=== PATIENT | male | born 1955 | race American Indian/Alaskan Native ===

== ENCOUNTER 2017-04-09 13:03 | Inpatient (IN) | payer MEDICARE, OTHER ==
[2017-04-09 13:52] LABS: Basophils % (Auto) 0.2 % (0.0-1.8); Eosinophils # (Auto) 0.4 K/mm3 (0.0-0.4); Eosinophils % (Auto) 3.9 % (0.0-4.3); Hematocrit 26.5 % (35.5-45.6); Hemoglobin 9.1 gm/dl (11.8-15.2); Lymphocytes # (Auto) 2.4 K/mm3 (1.2-5.4); Lymphocytes % (Auto) 26.1 % (13.4-35.0); Mean Corpuscular HGB Conc 34 % (32-34); Mean Corpuscular Hemoglobin 31 pg (28-32); Mean Corpuscular Volume 91 fl (84-94); Monocytes # (Auto) 0.7 K/mm3 (0.0-0.8); Monocytes % (Auto) 7.4 % (0.0-7.3); Platelet Count 169 K/mm3 (140-440); Red Blood Count 2.92 M/mm3 (3.65-5.03); Red Cell Distribution Width 13.1 % (13.2-15.2)
[2017-04-09 14:10] LABS: Alanine Aminotransferase 11 units/L (7-56); Albumin 3.3 g/dL (3.9-5); BUN/Creatinine Ratio 27; Blood Urea Nitrogen 16 mg/dL (9-20); Calcium 7.9 mg/dL (8.4-10.2); Hemolysis Index 5; Lipase 26 units/L (13-60)
[2017-04-09 14:13] LABS: INR 1.06 (0.87-1.13); Partial Thromboplastin Time 29.5 Sec. (24.2-36.6)
--- NOTE | 2017-04-09 14:24 | Emergency Department Report ---
ED GI Bleed HPI - General Chief complaint: GI Bleed Stated complaint: ANAL BLEED Time Seen by Provider: 04/09/17 14:06 Source: patient, family, EMS Mode of arrival: Stretcher Limitations: No Limitations - History of Present Illness Initial comments: Mr. Adhikari presents with 2 days of bloody stools, malaise and stomach upset. Has felt weak. No discrete pain. Hx of diverticular bleed 3 years ago. Required blood transfusion. Patient stated that he had both black and red blood seen in the toilet and on toilet paper. He did have brown stool. MD complaint: blood on toilet paper, blood streaked stool, gross hematochezia -: Gradual, days(s) (2) Severity scale (0 -10): 0 Quality: painless, other ("stomach rumbling, bubbling") Improves with: none Worsens with: none Context: history of GI bleed Associated Symptoms: denies: abdominal pain, nausea, vomiting, loss of appetite , easy bruising, shortness of breath - Related Data Home Medications Medication Instructions Recorded Confirmed Last Taken amLODIPine [Norvasc] 5 mg PO DAILY 11/20/14 04/09/17 04/08/17 Acetaminophen [Tylenol] 325 mg PO Q6HR PRN 02/07/15 04/09/17 04/08/17 Aspirin [Aspirin EC] 81 mg PO DAILY 04/09/17 04/09/17 04/08/17 AtorvaSTATin [Lipitor] 20 mg PO QHS 04/09/17 04/09/17 04/08/17 Quetiapine Fumarate [SEROquel] 50 mg PO QDAY 04/09/17 04/09/17 04/08/17 Sertraline [Zoloft] 50 mg PO QDAY 04/09/17 04/09/17 04/08/17 Allergies Allergy/AdvReac Type Severity Reaction Status Date / Time No Known Allergies Allergy Unverified 11/20/14 14:58 ED Review of Systems ROS: Stated complaint: ANAL BLEED Other details as noted in HPI Comment: All other systems reviewed and negative Constitutional: malaise, weakness Respiratory: denies: cough Cardiovascular: denies: chest pain ED Past Medical Hx - Past Medical History Hx Hypertension: Yes Hx Congestive Heart Failure: No Hx Diabetes: No Hx Liver Disease: (elevated LFT's) Hx Arthritis: No Hx Asthma: No Hx COPD: No Hx HIV: No Additional medical history: GIB - Social History Smoking Status: Current Some Day Smoker Substance Use Type: Alcohol - Medications Home Medications: Home Medications Medication Instructions Recorded Confirmed Last Taken Type amLODIPine [Norvasc] 5 mg PO DAILY 11/20/14 04/09/17 04/08/17 History Acetaminophen [Tylenol] 325 mg PO Q6HR PRN 02/07/15 04/09/17 04/08/17 History Aspirin [Aspirin EC] 81 mg PO DAILY 04/09/17 04/09/17 04/08/17 History AtorvaSTATin [Lipitor] 20 mg PO QHS 04/09/17 04/09/17 04/08/17 History Quetiapine Fumarate [SEROquel] 50 mg PO QDAY 04/09/17 04/09/17 04/08/17 History Sertraline [Zoloft] 50 mg PO QDAY 04/09/17 04/09/17 04/08/17 History ED Physical Exam - General Limitations: No Limitations General appearance: alert, in no apparent distress - Head Head exam: Present: atraumatic, normocephalic - Eye Eye exam: Present: normal appearance - ENT ENT exam: Present: mucous membranes moist - Neck Neck exam: Present: normal inspection - Respiratory Respiratory exam: Present: normal lung sounds bilaterally. Absent: respiratory distress, wheezes, rales, rhonchi - Cardiovascular Cardiovascular Exam: Present: regular rate, normal rhythm. Absent: systolic murmur, diastolic murmur, rubs, gallop - GI/Abdominal GI/Abdominal exam: Present: soft, normal bowel sounds. Absent: distended, tenderness, guarding, rebound, rigid - Rectal Rectal exam: Present: normal rectal tone, heme (+) stool, bloody stool (red thick blood, blood noted at rectum). Absent: hemorrhoids, mass - Extremities Exam Extremities exam: Present: normal inspection - Back Exam Back exam: Present: normal inspection - Neurological Exam Neurological exam: Present: alert, oriented X3 - Psychiatric Psychiatric exam: Present: normal affect, normal mood - Skin Skin exam: Present: warm, dry, intact, normal color. Absent: rash ED Course Vital Signs 04/09/17 04/09/17 13:25 13:28 Temperature 97.8 F Pulse Rate 91 H Respiratory 13 13 Rate Blood Pressure 103/79 [Left] O2 Sat by Pulse 98 98 Oximetry ED Medical Decision Making - Lab Data Result diagrams: 04/09/17 13:34 04/09/17 13:34 Laboratory Results - last 24 hr 04/09/17 04/09/17 04/09/17 13:34 13:34 13:34 WBC 9.2 RBC 2.92 L Hgb 9.1 L Hct 26.5 L MCV 91 MCH 31 MCHC 34 RDW 13.1 L Plt Count 169 Lymph % (Auto) 26.1 [place] % (Auto) 7.4 H Eos % (Auto) 3.9 Baso % (Auto) 0.2 Lymph # 2.4 Ware # 0.7 Eos # 0.4 Baso # 0.0 Seg Neutrophils % 62.4 Seg Neutrophils # 5.8 PT 14.4 INR 1.06 APTT 29.5 Sodium 140 Potassium 4.0 Chloride 105.7 Carbon Dioxide 24 Anion Gap 14 BUN 16 Creatinine 0.6 L Estimated GFR > 60 BUN/Creatinine Ratio 27 Glucose 119 H Calcium 7.9 L Total Bilirubin 0.50 AST 17 ALT 11 Alkaline Phosphatase 27 L Total Protein 5.3 L Albumin 3.3 L Albumin/Globulin Ratio 1.7 Lipase 26 Blood Type Antibody Screen 04/09/17 13:34 WBC RBC Hgb Hct MCV MCH MCHC RDW Plt Count Lymph % (Auto) [place] % (Auto) Eos % (Auto) Baso % (Auto) Lymph # Ware # Eos # Baso # Seg Neutrophils % Seg Neutrophils # PT INR APTT Sodium Potassium Chloride Carbon Dioxide Anion Gap BUN Creatinine Estimated GFR BUN/Creatinine Ratio Glucose Calcium Total Bilirubin AST ALT Alkaline Phosphatase Total Protein Albumin Albumin/Globulin Ratio Lipase Blood Type B NEGATIVE Antibody Screen Negative Vital Signs - 24 hr 04/09/17 04/09/17 13:25 13:28 Temperature 97.8 F Pulse Rate 91 H Respiratory 13 13 Rate Blood Pressure 103/79 [Left] O2 Sat by Pulse 98 98 Oximetry - Medical Decision Making 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 Patient had both lower and upper GI bleed due to diverticulosis bleed and peptic ulcer disease. He required 10 units of packed red blood cells. On today's current examination my clinical impression that he is experiencing lower GI bleed. Dr. Sharma hospitalist will admit. I have placed call with GI consult. Critical care attestation.: If time is entered above; I have spent that time in minutes in the direct care of this critically ill patient, excluding procedure time. ED Disposition Clinical Impression: Lower GI bleed Disposition: 09 OP ADMIT IP TO THIS HOSP Is pt being admited?: Yes Does the pt Need Aspirin: No Condition: Stable Forms: Accompanied Note Time of Disposition: 15:28
[2017-04-09] MEDS ORDERED: NACL 0.9% 1000 ML 1,000 ML IV ONE (15:33)
--- NOTE | 2017-04-09 16:15 | History and Physical Report ---
History of Present Illness Chief complaint: I got diverticulosis History of present illness: 61 YO Male with HTN, Nicotine Dependence, HLD, Diverticular Bleeding, Elevated LFT's presents to ED for evaluation. Pt states that he has experienced multiple episodes of blood in his stool over the past 2 days with worsening symptoms over the past day. Pt states that he felt dizzy upon standing, weak and unable to maintain his balance. Pt acknowledges decreased exercise tolerance. Pt presents to ED for evaluation. PT denies fever, chills, CP, Palpitations, NVD, Syncope, Vertigo, Trauma, productive cough, abdominal pain, or recent ill contacts. Pt seen and evaluated in ED and found to have symptomatic lower GI bleed. GI team consulted in ED. Pt admitted to medical floor. Past History Past Medical History: hypertension, other (Nicotine Dependence, GI Bleed,) Past Surgical History: Other (Colonoscopy) Social history: , lives with family, smoking. denies: alcohol abuse, prescription drug abuse Family history: hypertension Medications and Allergies Allergies Allergy/AdvReac Type Severity Reaction Status Date / Time No Known Allergies Allergy Unverified 11/20/14 14:58 Home Medications Medication Instructions Recorded Confirmed Last Taken Type amLODIPine [Norvasc] 5 mg PO DAILY 11/20/14 04/09/17 04/08/17 History Acetaminophen [Tylenol] 325 mg PO Q6HR PRN 02/07/15 04/09/17 04/08/17 History Aspirin [Aspirin EC] 81 mg PO DAILY 04/09/17 04/09/17 04/08/17 History AtorvaSTATin [Lipitor] 20 mg PO QHS 04/09/17 04/09/17 04/08/17 History Quetiapine Fumarate [SEROquel] 50 mg PO QDAY 04/09/17 04/09/17 04/08/17 History Sertraline [Zoloft] 50 mg PO QDAY 04/09/17 04/09/17 04/08/17 History Active Meds: Active Medications Sodium Chloride (Nacl 0.9% 1000 Ml) 1,000 mls @ 999 mls/hr IV BOLUS ONE Stop: 04/09/17 16:33 Last Admin: 04/09/17 15:43 Dose: 999 mls/hr Review of Systems Constitutional: weakness, no weight loss, no weight gain, no fever, no chills Ears, nose, mouth and throat: no ear pain, no ear discharge, no tinnitis, no decreased hearing, no nose pain, no nasal congestion Cardiovascular: no orthopnea, no palpitations, no rapid/irregular heart beat, no edema, no syncope Respiratory: no cough, no cough with sputum, no excessive sputum Gastrointestinal: melena, no nausea, no vomiting, no diarrhea, no constipation Genitourinary Male: no hematuria, no flank pain, no discharge, no urinary frequency, no urinary hesitancy Rectal: bleeding, no pain, no incontinence Musculoskeletal: no neck stiffness, no neck pain, no shooting arm pain, no arm numbness/tingling, no low back pain Integumentary: no rash, no pruritis, no redness Neurological: weakness, no head injury, no transient paralysis, no paralysis, no headaches, no migraines, no convulsions Psychiatric: no anxiety, no memory loss, no change in sleep habits, no sleep disturbances, no insomnia Endocrine: no cold intolerance, no heat intolerance, no polyphagia Hematologic/Lymphatic: no easy bruising, no easy bleeding, no lymphadenopathy, no lymphedema Allergic/Immunologic: no urticaria, no allergic rhinitis, no wheezing, no anaphylaxis Exam - Constitutional Vitals: Temp Pulse Resp BP Pulse Ox 97.8 F 91 H 13 103/79 98 04/09/17 13:25 04/09/17 13:25 04/09/17 13:28 04/09/17 13:25 04/09/17 13:28 General appearance: Present: mild distress - EENT Eyes: Present: PERRL ENT: hearing intact, clear oral mucosa - Neck Neck: Present: supple, normal ROM - Respiratory Respiratory effort: normal Respiratory: bilateral: CTA - Cardiovascular Rhythm: other (tachycardia) Heart Sounds: Present: S1 & S2. Absent: rub, click - Extremities Extremities: pulses symmetrical, No edema Peripheral Pulses: within normal limits - Abdominal General gastrointestinal: Present: soft, non-tender, non-distended, normal bowel sounds Male genitourinary: Present: normal - Integumentary Integumentary: Present: clear, warm, dry - Musculoskeletal Musculoskeletal: generalized weakness - Psychiatric Psychiatric: appropriate mood/affect, intact judgment & insight Results - Labs CBC & Chem 7: 04/09/17 13:34 04/09/17 13:34 Labs: Abnormal lab results 04/09/17 04/09/17 Range/Units 13:34 13:34 RBC 2.92 L (3.65-5.03) M/mm3 Hgb 9.1 L (11.8-15.2) gm/dl Hct 26.5 L (35.5-45.6) % RDW 13.1 L (13.2-15.2) % [place] % (Auto) 7.4 H (0.0-7.3) % Creatinine 0.6 L (0.8-1.5) mg/dL Glucose 119 H (75-100) mg/dL Calcium 7.9 L (8.4-10.2) mg/dL Alkaline Phosphatase 27 L (35-129) units/L Total Protein 5.3 L (6.3-8.2) g/dL Albumin 3.3 L (3.9-5) g/dL Assessment and Plan - Patient Problems (1) Lower GI bleed Current Visit: Yes Status: Acute Plan to address problem: GI consulted, IV ppi therapy, monitor hgb with serial cbc, Endoscopy as per GI, PRBC transfusion as clinically indicated. (2) HTN (hypertension), benign Current Visit: No Status: Acute Plan to address problem: monitor bp q shift, continue medical management, IV hydralazine prn (3) Tobacco abuse Current Visit: No Status: Acute Plan to address problem: Pt counseled, Pt refused to pick quit date (4) Obesity (BMI 30.0-34.9) Current Visit: Yes Status: Acute Plan to address problem: Pt counseled regarding balanced diet, and increased physical activity as discharge. (5) DVT prophylaxis Current Visit: No Status: Acute
[2017-04-09] MEDS ORDERED: TYLENOL PO PRN ×2 (16:17→16:21)
[2017-04-09] MEDS ORDERED: PROVENTIL IH PRN (16:17)
[2017-04-09] MEDS ORDERED: ZOFRAN IV PRN (16:17)
--- NOTE | 2017-04-09 16:50 | Gastroenterology Consultation ---
History of Present Illness - Reason for Consult Consult date: 04/09/17 LGI bleed Requesting physician: ROMEO JONES - History of Present Illness The patient is a 61 year old man now admitted for LGI bleeding. He reports passing BRBPR intermittently starting 2 days ago and felt it would stop on its' own. He has had a previous massive LGIB from diverticulosis about 3 years ago requiring about 17 units of PRBCs and contemplation of surgery at that time. A few benign polyps were also noted. The patient reports that EGD was unrevealing for bleeding sources at that time. He has had no abdominal pain, fever, chills or weight loss. The patient smokes a half pack of cigarettes, quit drinking 40 years ago. No use of NSAIDS or anticoagulants. PMH remarkable he reports for hypertension. Also taking seroquel. No FH of colon cancer. Past History Past Medical History: hypertension, other (Prior diverticular bleeding. On seroquel for possible mental health illness.) Past Surgical History: No surgical history Social history: no significant social history, smoking. denies: alcohol abuse Family history: no significant family history Medications and Allergies Allergies Allergy/AdvReac Type Severity Reaction Status Date / Time No Known Allergies Allergy Unverified 11/20/14 14:58 Home Medications Medication Instructions Recorded Confirmed Last Taken Type amLODIPine [Norvasc] 5 mg PO DAILY 11/20/14 04/09/17 04/08/17 History Acetaminophen [Tylenol] 325 mg PO Q6HR PRN 02/07/15 04/09/17 04/08/17 History Aspirin [Aspirin EC] 81 mg PO DAILY 04/09/17 04/09/17 04/08/17 History AtorvaSTATin [Lipitor] 20 mg PO QHS 04/09/17 04/09/17 04/08/17 History Quetiapine Fumarate [SEROquel] 50 mg PO QDAY 04/09/17 04/09/17 04/08/17 History Sertraline [Zoloft] 50 mg PO QDAY 04/09/17 04/09/17 04/08/17 History Active Meds: Active Medications Acetaminophen (Tylenol) 650 mg PO Q4H PRN PRN Reason: Pain MILD(1-3)/Fever >100.5/BOOKER Albuterol (Proventil) 2.5 mg IH Q4HRT PRN PRN Reason: Shortness Of Breath Amlodipine Besylate (Norvasc) 5 mg PO QDAY [facility] Atorvastatin Calcium (Lipitor) 20 mg PO QHS [facility] Ondansetron HCl (Zofran) 4 mg IV Q8H PRN PRN Reason: N/V unrelieved by Reglan Pantoprazole Sodium (Protonix) 40 mg IV BID [facility] Quetiapine Fumarate (Seroquel) 50 mg PO DAILY [facility] Sertraline HCl (Zoloft) 50 mg PO QDAY [facility] Review of Systems - Review of Systems Constitutional: no weight loss, no weight gain, no fever, no chills Eyes: no change in vision Ears, Nose, Throat: no decreased hearing, no epistaxis Breasts: deferred Cardiovascular: no chest pain, no palpitations, no shortness of breath, no syncope Respiratory: no cough, no shortness of breath, no wheezing, no home oxygen Gastrointestinal: hematochezia, no abdominal pain, no nausea, no vomiting, no diarrhea, no constipation, no change in bowel habits, no hematemesis, no jaundice Rectal: no pain Male Genitourinary: deferred Musculoskeletal: no gait dysfunction, no joint pain, no muscle pain, no muscle weakness Integumentary: no deferred, no rash, no pruritis, no jaundice Neurological: no head injury, no paralysis Psychiatric: no change in sleep habits, no change in appetite, no suicidal ideation Endocrine: no cold intolerance, no heat intolerance Hematologic/Lymphatic: no easy bruising, no easy bleeding Allergic/Immunologic: no wheezing Exam - Constitutional Vital Signs: Temp Pulse Resp BP Pulse Ox 97.8 F 91 H 13 103/79 98 04/09/17 13:25 04/09/17 13:25 04/09/17 13:28 04/09/17 13:25 04/09/17 13:28 General appearance: no acute distress, well-nourished - EENT Eyes: PERRL ENT: hearing intact, clear oral mucosa, dentition normal - Neck Neck: supple, normal ROM, no masses or JVD - Respiratory Respiratory effort: normal Respiratory: bilateral: CTA - Breasts Breasts: deferred - Cardiovascular Rhythm: regular Heart Sounds: Present: S1 & S2. Absent: gallop, rub Extremities: pulses intact, No edema, normal color, Full ROM - Gastrointestinal General gastrointestinal: Present: soft, non-tender, non-distended, normal bowel sounds. Absent: hepatomegaly, splenomegaly, mass Rectal Exam: deferred, other (BRB in rectal vault per ER MD) - Genitourinary Male Genitourinary: deferred - Integumentary Integumentary: Present: clear, warm, dry - Neurologic Neurological: alert and oriented x3 - Labs CBC & Chem 7: 04/09/17 13:34 04/09/17 13:34 Lab Results: Laboratory Results - last 24 hr 04/09/17 04/09/17 04/09/17 13:34 13:34 13:34 WBC 9.2 RBC 2.92 L Hgb 9.1 L Hct 26.5 L MCV 91 MCH 31 MCHC 34 RDW 13.1 L Plt Count 169 Lymph % (Auto) 26.1 [place] % (Auto) 7.4 H Eos % (Auto) 3.9 Baso % (Auto) 0.2 Lymph # 2.4 [place] # 0.7 Eos # 0.4 Baso # 0.0 Seg Neutrophils % 62.4 Seg Neutrophils # 5.8 PT 14.4 INR 1.06 APTT 29.5 Sodium 140 Potassium 4.0 Chloride 105.7 Carbon Dioxide 24 Anion Gap 14 BUN 16 Creatinine 0.6 L Estimated GFR > 60 BUN/Creatinine Ratio 27 Glucose 119 H Calcium 7.9 L Total Bilirubin 0.50 AST 17 ALT 11 Alkaline Phosphatase 27 L Total Protein 5.3 L Albumin 3.3 L Albumin/Globulin Ratio 1.7 Lipase 26 Blood Type Antibody Screen 04/09/17 13:34 WBC RBC Hgb Hct MCV MCH MCHC RDW Plt Count Lymph % (Auto) [place] % (Auto) Eos % (Auto) Baso % (Auto) Lymph # [place] # Eos # Baso # Seg Neutrophils % Seg Neutrophils # PT INR APTT Sodium Potassium Chloride Carbon Dioxide Anion Gap BUN Creatinine Estimated GFR BUN/Creatinine Ratio Glucose Calcium Total Bilirubin AST ALT Alkaline Phosphatase Total Protein Albumin Albumin/Globulin Ratio Lipase Blood Type B NEGATIVE Antibody Screen Negative Assessment and Plan - Patient Problems (1) Lower GI bleed Current Visit: Yes Status: Acute Plan to address problem: Probable recurrent diverticular bleed. Reports that his last blood BM was last night. Will plan colonoscopy tomorrow. Prep tonight. Moderate anemia is present,Hgb 9, but he is hemodynamically stable. Thank you for this consultation. (2) Anemia Current Visit: No Status: Acute Qualifiers: Anemia type: unspecified type Qualified Code(s): D64.9 - Anemia, unspecified (3) HTN (hypertension), benign Current Visit: No Status: Acute
[2017-04-09] MEDS ORDERED: GOLYTELY PO SCH (17:00)
--- NOTE | 2017-04-09 21:04 | Anesthesia Consultation ---
Anesthesia Consult and Med Hx Date of service: 04/09/17 - Airway Anesthetic Teeth Evaluation: Dentures (upper), Partials (lower) ROM Head & Neck: Adequate Mental/Hyoid Distance: Adequate Mallampati Class: Class I Intubation Access Assessment: Probably Good - Pulmonary Exam CTA: Yes - Cardiac Exam Cardiac Exam: RRR - Pre-Operative Health Status ASA Pre-Surgery Classification: ASA3 Proposed Anesthetic Plan: MAC - Pulmonary Hx Smoking: Yes (1/2pk/day x 40 yrs) Hx Asthma: No COPD: No Hx Pneumonia: No Hx Sleep Apnea: No - Cardiovascular System Hx Hypertension: Yes (HL) Hx Heart Attack/AMI: No Hx Peripheral Vascular Disease: No - Central Nervous System Hx Back Pain: Yes Hx Psychiatric Problems: Yes (taking seroquel) - Gastrointestinal Hx Ulcer: Yes Hx Gastroesophageal Reflux Disease: Yes (gastric ulcer; diverticular hemorrhage , ) - Endocrine Hx End Stage Renal Disease: No Hx Liver Disease: (elevated LFT's) - Hematic Hx Anemia: Yes - Other Systems Hx Cancer: No - Additional Comments Anesthesia Medical History Comments: lower GI bleeding
[2017-04-09] MEDS: PROTONIX IV SCH (23:10)
--- NOTE | 2017-04-10 07:19 | Progress Note ---
Assessment and Plan Assessment and plan: 61 YO Male with HTN, Nicotine Dependence, HLD, Diverticular Bleeding, Elevated LFT's , c/o blood stools, dizzyness on standing, PEREZ, Decreased exercise toleration, Lower GI bleed GI consulted, IV ppi therapy, monitor hgb with serial cbc, Endoscopy as per GI, PRBC transfusion as clinically indicated. -awaiting EGD and c-scope Acute blood loss anemia transfuse to keep hg above 7 HTN (hypertension), benign monitor bp q shift, continue medical management, IV hydralazine prn Tobacco abuse Pt counseled, Pt refused to pick quit date Obesity (BMI 30.0-34.9) Pt counseled regarding balanced diet, and increased physical activity as discharge. DVT prophylaxis Current Visit: No Status: Acute History Interval history: no further blood stools no cp, no sob, no fever, no dysuria Hospitalist Physical - Constitutional Vitals: Temp Pulse Resp BP Pulse Ox 98.5 F 94 H 18 110/76 99 04/09/17 20:23 04/09/17 20:23 04/09/17 20:23 04/09/17 20:23 04/09/17 20:32 General appearance: Present: mild distress - EENT Eyes: Present: PERRL ENT: hearing intact - Neck Neck: Present: supple - Respiratory Respiratory effort: normal Respiratory: bilateral: CTA - Cardiovascular Rhythm: regular Heart Sounds: Present: S1 & S2 - Extremities Extremities: no ischemia Peripheral Pulses: within normal limits - Abdominal General gastrointestinal: soft, non-tender - Integumentary Integumentary: Present: clear, warm, dry - Psychiatric Psychiatric: appropriate mood/affect, intact judgment & insight - Neurologic Neurologic: CNII-XII intact, moves all extremities Results - Labs CBC & Chem 7: 04/10/17 07:32 04/09/17 13:34 Labs: Laboratory Last Values WBC 9.2 K/mm3 (4.5-11.0) 04/09/17 13:34 RBC 2.92 M/mm3 (3.65-5.03) L 04/09/17 13:34 Hgb 9.1 gm/dl (11.8-15.2) L 04/09/17 13:34 Hct 26.5 % (35.5-45.6) L 04/09/17 13:34 MCV 91 fl (84-94) 04/09/17 13:34 MCH 31 pg (28-32) 04/09/17 13:34 MCHC 34 % (32-34) 04/09/17 13:34 RDW 13.1 % (13.2-15.2) L 04/09/17 13:34 Plt Count 169 K/mm3 (140-440) 04/09/17 13:34 Lymph % (Auto) 26.1 % (13.4-35.0) 04/09/17 13:34 [place] % (Auto) 7.4 % (0.0-7.3) H 04/09/17 13:34 Eos % (Auto) 3.9 % (0.0-4.3) 04/09/17 13:34 Baso % (Auto) 0.2 % (0.0-1.8) 04/09/17 13:34 Lymph # 2.4 K/mm3 (1.2-5.4) 04/09/17 13:34 [place] # 0.7 K/mm3 (0.0-0.8) 04/09/17 13:34 Eos # 0.4 K/mm3 (0.0-0.4) 04/09/17 13:34 Baso # 0.0 K/mm3 (0.0-0.1) 04/09/17 13:34 Seg Neutrophils % 62.4 % (40.0-70.0) 04/09/17 13:34 Seg Neutrophils # 5.8 K/mm3 (1.8-7.7) 04/09/17 13:34 PT 14.4 Sec. (12.2-14.9) 04/09/17 13:34 INR 1.06 (0.87-1.13) 04/09/17 13:34 APTT 29.5 Sec. (24.2-36.6) 04/09/17 13:34 Sodium 140 mmol/L (137-145) 04/09/17 13:34 Potassium 4.0 mmol/L (3.6-5.0) 04/09/17 13:34 Chloride 105.7 mmol/L (98-107) 04/09/17 13:34 Carbon Dioxide 24 mmol/L (22-30) 04/09/17 13:34 Anion Gap 14 mmol/L 04/09/17 13:34 BUN 16 mg/dL (9-20) 04/09/17 13:34 Creatinine 0.6 mg/dL (0.8-1.5) L 04/09/17 13:34 Estimated GFR > 60 ml/min 04/09/17 13:34 BUN/Creatinine Ratio 27 % 04/09/17 13:34 Glucose 119 mg/dL (75-100) H 04/09/17 13:34 Calcium 7.9 mg/dL (8.4-10.2) L 04/09/17 13:34 Total Bilirubin 0.50 mg/dL (0.1-1.2) 04/09/17 13:34 AST 17 units/L (5-40) 04/09/17 13:34 ALT 11 units/L (7-56) 04/09/17 13:34 Alkaline Phosphatase 27 units/L (35-129) L 04/09/17 13:34 Total Protein 5.3 g/dL (6.3-8.2) L 04/09/17 13:34 Albumin 3.3 g/dL (3.9-5) L 04/09/17 13:34 Albumin/Globulin Ratio 1.7 % 04/09/17 13:34 Lipase 26 units/L (13-60) 04/09/17 13:34 Blood Type B NEGATIVE 04/09/17 13:34 Antibody Screen Negative 04/09/17 13:34
[2017-04-10 08:38] LABS: Hematocrit 22.3 % (35.5-45.6); Hemoglobin 7.8 gm/dl (11.8-15.2); Mean Corpuscular HGB Conc 35 % (32-34); Mean Corpuscular Hemoglobin 32 pg (28-32); Mean Corpuscular Volume 90 fl (84-94); Platelet Count 147 K/mm3 (140-440); Red Blood Count 2.48 M/mm3 (3.65-5.03); Red Cell Distribution Width 13.1 % (13.2-15.2)
[2017-04-10] MEDS ORDERED: NON-FORMULARY (Quetiapine Fumarate [Seroquel] 50 MG) PO SCH (10:00)
[2017-04-10] MEDS ORDERED: NORVASC PO SCH (10:00)
[2017-04-10] MEDS: NORVASC PO SCH (10:26)
[2017-04-10] MEDS ORDERED: WATER FOR IRRIG STERILE ONE (11:10)
[2017-04-10] MEDS ORDERED: NACL 0.9% 1000 ML 1,000 ML ONE (11:10)
[2017-04-10] MEDS ORDERED: WATER FOR IRRIG STERILE IR ONE (11:10)
[2017-04-10] MEDS ORDERED: NACL 0.9% 1000 ML 1,000 ML IV SCH (12:00)
[2017-04-10] MEDS ORDERED: NEO SYNEPHRINE/NS Syringe(OR USE) IV ONE (12:01)
[2017-04-10] MEDS ORDERED: XYLOCAINE CARDIAC IV ONE (12:01)
[2017-04-10] MEDS ORDERED: ZOFRAN ONE (12:01)
[2017-04-10] MEDS ORDERED: DECADRON ONE (12:01)
[2017-04-10] MEDS ORDERED: DIPRIVAN 10 MG/ML IV ONE ×2 (12:02→12:11)
[2017-04-10] MEDS ORDERED: VERSED ONE (12:02)
[2017-04-10] MEDS: PROTONIX IV SCH ×3 (12:08→21:34)
[2017-04-10] MEDS: ZOLOFT PO SCH ×2 (12:08→17:54)
--- NOTE | 2017-04-10 12:56 | Post Anesthesia Evaluation ---
- Post Anesthesia Evaluation Patient Participated: Yes Airway Patent: Yes Stable Respiratory Function: Yes Temp > 96.8F: Yes Pain Manageable: Yes Adequeate Hydration: Yes Anesthesia Complications: No
--- NOTE | 2017-04-10 13:05 | Post Operative Note ---
Pre-op diagnosis: GI bleed Post-op diagnosis: other (EGD: gastric erosion, duodenitis; colonoscopy: diverticulosis (right > left), internal hemorrhoids) Findings: EGD: clean based gastric erosion, mild duodenitis, bile in 2nd portion. no bleeding source Colonoscopy: diverticulosis (right side of colon > left, no blood seen during procedure). distal ileum w/o blood Procedure: EGD + colonoscopy Anesthesia: MAC Surgeon: NESTOR CARNES Estimated blood loss: none Pathology: none Condition: stable Disposition: floor
--- NOTE | 2017-04-10 13:10 | Operative Report ---
Operative Report Operative Report: Esophagogastroduodenoscopy Procedure Report Pre-op diagnosis/indication: GI bleed Post-op diagnosis: gastric erosion, duodenitis MEDICATIONS: MAC COMPLICATIONS: No immediate complications ESTIMATED BLOOD LOSS: none DESCRIPTION OF PROCEDURE: After consent was obtained, the patient was placed in the left lateral decubitis position. The upper fujinon endoscope was passed with direct vision through the mouth and advanced to the 2nd portion of the duodenum without difficulty. The mucosal views were good. The patient tolerated the procedure well. The patient's vital signs were monitored continuously throughout the procedure. FINDINGS: The esophagus appeared normal. There were small clean based gastric erosions, otherwise the stomach appeared normal. Mild erythematous mucosa in the first portion of duodenum. Bile seen throughout duodenum. Otherwise, unremarkable upper endoscopy. IMPRESSION: 1. Clean based gastric erosions 2. Duodenitis No source for patient's bleeding identified during upper endoscopy RECOMMENDATIONS: -colonoscopy to follow
--- NOTE | 2017-04-10 13:19 | Operative Report ---
Operative Report Operative Report: Colonoscopy Procedure Note Pre-op diagnosis/indication: GI bleed, hematochezia Post-op diagnosis: diverticulosis, internal hemorrhoids MEDICATIONS: MAC COMPLICATIONS: No immediate complications ESTIMATED BLOOD LOSS: none DESCRIPTION OF PROCEDURE: After consent was obtained, the patient was placed in the left lateral decubitis position. The fujinon colonoscope was inserted into the rectum under direct vision, and advanced to the cecum and terminal ileum without difficulty. The quality of prep was good. The patient tolerated the procedure well. The patient's vital signs were monitored continuously throughout the procedure. FINDINGS: Scattered diverticulosis throughout the colon, however more prominent on right side of colon. There was brown liquid stool in the colon without signs of bleeding. The terminal ileum appeared normal without evidence of any bleeding. Internal hemorrhoids were seen on retroflexion view. IMPRESSION: 1. Diverticulosis (throughout colon, however more prominent on right side). No blood or signs of active bleeding seen during procedure. 2. Internal hemorrhoids. Suspect etiology is diverticular bleeding (which currently appears to have subsided). RECOMMENDATIONS: -will start full liquid diet -monitor for time being. if he has any further bleeding episodes, obtain stat bleeding scan -likely should be evaluated by surgery for consideration of sub-total colectomy (inpt vs elective/outpt procedure if no further bleeding).
--- NOTE | 2017-04-10 21:11 | Progress Note ---
Assessment and Plan Assessment and plan: 61 YO Male with HTN, Nicotine Dependence, HLD, Diverticular Bleeding, Elevated LFT's , c/o blood stools, dizzyness on standing, PEREZ, Decreased exercise toleration, Cscope 1. Diverticulosis (throughout colon, however more prominent on right side). No blood or signs of active bleeding seen during procedure. 2. Internal hemorrhoids. Suspect etiology is diverticular bleeding (which currently appears to have subsided). ~ RECOMMENDATIONS: -will start full liquid diet -monitor for time being. if he has any further bleeding episodes, obtain stat bleeding scan -likely should be evaluated by surgery for consideration of sub-total colectomy (inpt vs elective/outpt procedure if no further bleeding). EGD 1. Clean based gastric erosions 2. Duodenitis Lower GI bleed GI consulted, IV ppi therapy, monitor hgb with serial cbc, Endoscopy as per GI, PRBC transfusion as clinically indicated. -awaiting EGD and c-scope Acute blood loss anemia transfuse to keep hg above 7 HTN (hypertension), benign monitor bp q shift, continue medical management, IV hydralazine prn Tobacco abuse Pt counseled, Pt refused to pick quit date Obesity (BMI 30.0-34.9) Pt counseled regarding balanced diet, and increased physical activity as discharge. DVT prophylaxis Current Visit: No Status: Acute Hospitalist Physical - Constitutional Vitals: Temp Pulse Resp BP Pulse Ox 98.8 F 98 H 16 113/64 93 04/10/17 19:39 04/10/17 19:39 04/10/17 19:39 04/10/17 19:39 04/10/17 19:39 General appearance: Present: mild distress Results - Labs CBC & Chem 7: 04/10/17 07:32 04/09/17 13:34 Labs: Laboratory Last Values WBC 6.3 K/mm3 (4.5-11.0) 04/10/17 07:32 RBC 2.48 M/mm3 (3.65-5.03) L 04/10/17 07:32 Hgb 7.8 gm/dl (11.8-15.2) L 04/10/17 07:32 Hct 22.3 % (35.5-45.6) L 04/10/17 07:32 MCV 90 fl (84-94) 04/10/17 07:32 MCH 32 pg (28-32) 04/10/17 07:32 MCHC 35 % (32-34) H 04/10/17 07:32 RDW 13.1 % (13.2-15.2) L 04/10/17 07:32 Plt Count 147 K/mm3 (140-440) 04/10/17 07:32 Lymph % (Auto) 26.1 % (13.4-35.0) 04/09/17 13:34 [place] % (Auto) 7.4 % (0.0-7.3) H 04/09/17 13:34 Eos % (Auto) 3.9 % (0.0-4.3) 04/09/17 13:34 Baso % (Auto) 0.2 % (0.0-1.8) 04/09/17 13:34 Lymph # 2.4 K/mm3 (1.2-5.4) 04/09/17 13:34 [place] # 0.7 K/mm3 (0.0-0.8) 04/09/17 13:34 Eos # 0.4 K/mm3 (0.0-0.4) 04/09/17 13:34 Baso # 0.0 K/mm3 (0.0-0.1) 04/09/17 13:34 Seg Neutrophils % 62.4 % (40.0-70.0) 04/09/17 13:34 Seg Neutrophils # 5.8 K/mm3 (1.8-7.7) 04/09/17 13:34 PT 14.4 Sec. (12.2-14.9) 04/09/17 13:34 INR 1.06 (0.87-1.13) 04/09/17 13:34 APTT 29.5 Sec. (24.2-36.6) 04/09/17 13:34 Sodium 140 mmol/L (137-145) 04/09/17 13:34 Potassium 4.0 mmol/L (3.6-5.0) 04/09/17 13:34 Chloride 105.7 mmol/L (98-107) 04/09/17 13:34 Carbon Dioxide 24 mmol/L (22-30) 04/09/17 13:34 Anion Gap 14 mmol/L 04/09/17 13:34 BUN 16 mg/dL (9-20) 04/09/17 13:34 Creatinine 0.6 mg/dL (0.8-1.5) L 04/09/17 13:34 Estimated GFR > 60 ml/min 04/09/17 13:34 BUN/Creatinine Ratio 27 % 04/09/17 13:34 Glucose 119 mg/dL (75-100) H 04/09/17 13:34 Calcium 7.9 mg/dL (8.4-10.2) L 04/09/17 13:34 Total Bilirubin 0.50 mg/dL (0.1-1.2) 04/09/17 13:34 AST 17 units/L (5-40) 04/09/17 13:34 ALT 11 units/L (7-56) 04/09/17 13:34 Alkaline Phosphatase 27 units/L (35-129) L 04/09/17 13:34 Total Protein 5.3 g/dL (6.3-8.2) L 04/09/17 13:34 Albumin 3.3 g/dL (3.9-5) L 04/09/17 13:34 Albumin/Globulin Ratio 1.7 % 04/09/17 13:34 Lipase 26 units/L (13-60) 04/09/17 13:34 Blood Type B NEGATIVE 04/09/17 13:34 Antibody Screen Negative 04/09/17 13:34
[2017-04-11 05:18] LABS: Hematocrit 22.5 % (35.5-45.6); Hemoglobin 7.9 gm/dl (11.8-15.2); Lymphocytes # (Auto) 1.2 K/mm3 (1.2-5.4); Lymphocytes % (Auto) 13.3 % (13.4-35.0); Mean Corpuscular HGB Conc 35 % (32-34); Mean Corpuscular Hemoglobin 32 pg (28-32); Mean Corpuscular Volume 90 fl (84-94); Monocytes # (Auto) 0.4 K/mm3 (0.0-0.8); Monocytes % (Auto) 4.9 % (0.0-7.3); Platelet Count 170 K/mm3 (140-440)
[2017-04-11 05:44] LABS: BUN/Creatinine Ratio 14; Blood Urea Nitrogen 10 mg/dL (9-20); Calcium 8.6 mg/dL (8.4-10.2); Hemolysis Index 3
[2017-04-11] MEDS: NORVASC PO SCH (09:47)
[2017-04-11] MEDS: ZOLOFT PO SCH (09:48)
[2017-04-11] MEDS: PROTONIX IV SCH (09:49)
--- NOTE | 2017-04-11 11:57 | Discharge Summary ---
Providers - Providers Date of Admission: 04/09/17 16:17 Attending physician: CHRISTIE MARTE MD 04/09/17 14:25 Consult to Physician [CONS] Urgent Consulting Provider: KENY HAGER Reason For Exam: lower GI bleed Place consult to:: Notified:: y Was contact made?: Yes Primary care physician: [facility] SPECIALIST Hospitalization Condition: Stable Hospital course: 61 YO Male with HTN, Nicotine Dependence, HLD, Diverticular Bleeding, Elevated LFT's , c/o blood stools, dizzyness on standing, PEREZ, Decreased exercise toleration, Cscope 1. Diverticulosis (throughout colon, however more prominent on right side). No blood or signs of active bleeding seen during procedure. 2. Internal hemorrhoids. Suspect etiology is diverticular bleeding (which currently appears to have subsided). ~ RECOMMENDATIONS: -will start full liquid diet -monitor for time being. if he has any further bleeding episodes, obtain stat bleeding scan -likely should be evaluated by surgery for consideration of sub-total colectomy (inpt vs elective/outpt procedure if no further bleeding). EGD 1. Clean based gastric erosions 2. Duodenitis Lower GI bleed GI consulted, IV ppi therapy, monitor hgb with serial cbc, Endoscopy as per GI, PRBC transfusion as clinically indicated. -awaiting EGD and c-scope Acute blood loss anemia transfuse to keep hg above 7 HTN (hypertension), benign monitor bp q shift, continue medical management, IV hydralazine prn Tobacco abuse Pt counseled, Pt refused to pick quit date Obesity (BMI 30.0-34.9) Pt counseled regarding balanced diet, and increased physical activity as discharge. DVT prophylaxis Current Visit: No Status: Acute Disposition: DC- TO HOME OR SELFCARE Time spent for discharge: 33 minutes Core Measure Documentation - Palliative Care Palliative Care/ Comfort Measures: Not Applicable - Core Measures Any of the following diagnoses?: none Exam - Constitutional Vitals: Temp Pulse Resp BP Pulse Ox 98.0 F 93 H 18 98/58 94 04/11/17 07:10 04/11/17 07:10 04/11/17 07:10 04/11/17 09:47 04/11/17 07:10 General appearance: Present: no acute distress, well-nourished - EENT Eyes: Present: PERRL ENT: hearing intact, clear oral mucosa - Neck Neck: Present: supple, normal ROM - Respiratory Respiratory effort: normal Respiratory: bilateral: CTA - Cardiovascular Heart Sounds: Present: S1 & S2. Absent: rub, click - Extremities Extremities: pulses symmetrical, No edema Peripheral Pulses: within normal limits - Abdominal General gastrointestinal: Present: soft, non-tender, non-distended, normal bowel sounds Male genitourinary: Present: normal - Integumentary Integumentary: Present: clear, warm, dry - Musculoskeletal Musculoskeletal: gait normal, strength equal bilaterally - Psychiatric Psychiatric: appropriate mood/affect, intact judgment & insight - Neurologic Neurologic: CNII-XII intact, moves all extremities Plan Additional Instructions: Stop Aspirin for a week, do not restart it until your pcp tells you to. Pls see your pcp within a week for repeat blood count Follow up with: PRIMARY CARE, [Primary Care Provider] - 3-5 Days Forms: Accompanied Note Prescriptions: Pantoprazole [Protonix] 40 mg PO BID #60 tablet
[2017-04-11 12:16] VITALS: BP 116/65
--- NOTE | 2017-04-11 14:07 | Gastroenterology Progress Note ---
Assessment and Plan 1. GI bleed - suspect diverticular bleed which appears to have resolved. h/h stable w/o further overt bleeding episodes. pt to be discharged today. he should f/u in GI clinic in 2 weeks. Take iron bid. high fiber diet daily and avoid nsaid's. discuss elective outpt subtotal colectomy given h/o suspected diverticular bleeding. he was instructed to return to the hospital for any further bleeding episodes. Subjective Date of service: 04/11/17 Principal diagnosis: gi bleed Interval history: pt doing well, no further bleeding episodes. denies abd pain. Objective - Constitutional Vitals: Temp Pulse Resp BP Pulse Ox 97.9 F 76 18 116/65 97 04/11/17 11:28 04/11/17 11:28 04/11/17 11:28 04/11/17 11:28 04/11/17 11:28 General appearance: no acute distress - Respiratory Respiratory effort: normal Respiratory: bilateral: CTA - Cardiovascular Rhythm: regular Heart Sounds: Present: S1 & S2 - Gastrointestinal General gastrointestinal: Present: soft, non-tender, non-distended - Integumentary Integumentary: Present: clear, warm - Neurologic Neurological: alert and oriented x3 - Labs CBC & Chem 7: 04/11/17 04:58 04/11/17 04:58 Labs: Laboratory Results - last 24 hr 04/11/17 04/11/17 04:58 04:58 WBC 9.1 RBC 2.50 L Hgb 7.9 L Hct 22.5 L MCV 90 MCH 32 MCHC 35 H RDW 13.0 L Plt Count 170 Lymph % (Auto) 13.3 L [place] % (Auto) 4.9 Eos % (Auto) 0.0 Baso % (Auto) 0.0 Lymph # 1.2 [place] # 0.4 Eos # 0.0 Baso # 0.0 Seg Neutrophils % 81.8 H Seg Neutrophils # 7.4 Sodium 146 H Potassium 4.1 Chloride 106.4 Carbon Dioxide 25 Anion Gap 19 BUN 10 Creatinine 0.7 L Estimated GFR > 60 BUN/Creatinine Ratio 14 Glucose 113 H Calcium 8.6
== END 2017-04-11 14:15 | disposition home or self-care (01) | DRG 378 ==
LOC: ED 13:03 → 3A 16:17
PROVIDERS: ADMIT Internal Medicine; ATTEND Internal Medicine
PROC: 0DJ08ZZ Inspection of Upper Intestinal Tract, Via Natural or Artificial Opening Endoscopic (ICD-10-PCS; principal; 2017-04-10)
PROC: 0DJD8ZZ Inspection of Lower Intestinal Tract, Via Natural or Artificial Opening Endoscopic (ICD-10-PCS; 2017-04-10)
DX: K57.91 Diverticulosis of intestine, part unspecified, without perforation or abscess with bleeding (principal); D62 Acute posthemorrhagic anemia; Z79.82 Long term (current) use of aspirin; I10 Essential (primary) hypertension; F17.200 Nicotine dependence, unspecified, uncomplicated; E78.5 Hyperlipidemia, unspecified; Z82.49 Family history of ischemic heart disease and other diseases of the circulatory system; E66.9 Obesity, unspecified; Z68.29 Body mass index [BMI] 29.0-29.9, adult; K21.9 Gastro-esophageal reflux disease without esophagitis; K64.8 Other hemorrhoids; K29.81 Duodenitis with bleeding
CPT/HCPCS: 36415; 80048; 80053; 83690; 85025; 85027; 85610; 85730; 86850; 86900; 86901; 93005; 93010; 96360; A9270-GY; C9113; J1100; J2001; J2250; J2370; J2405; J2704; J7030